=== PATIENT | female | born 1990 | race Caucasian/White ===

== ENCOUNTER 2016-05-17 14:42 | Outpatient (CLI) | payer MEDICAID ==
[~2016-05-17] VITALS: Ht 154.9 cm; Wt 80.4 kg
[~2016-05-17 14:42] MED LIST: PREN1TAB49
[2016-05-17 14:58] VITALS: BP 113/63; PULSE 96; RESP 19; Ht 154.9 cm; Wt 80.4 kg
--- NOTE | 2016-05-17 15:37 | RADRPT ---
PROCEDURE: US biophysical profile. CLINICAL INDICATION: Vaginal bleeding. TECHNIQUE: Multiple sonographic images of the uterus were obtained. The images were revi ewed on a PACS workstation. COMPARISON: No prior studies are available for comparison. FINDINGS: There is a single live intrauterine gestation. heart rate is 126 beats per minute. The position is cephalic. The placenta is anterior grade II with no abruption or previa. The DREW is 9.4 cm. (Normal = 5-20 cm.) Breathing Movement: 2 Gross Body Movement: 2 Tone: 2 Qualitative Amniotic Fluid Volume: 2 TOTAL: 8 IMPRESSION: 1. The biophysical score is 8/8. RPTAT: QQ .Lars Segovia MD, MD Date Time Electronically viewed and signed by .Lars Segovia MD, on 05/17/2016 15:37 .R/
--- NOTE | 2016-05-17 16:33 | TRIAGE ---
OB Triage Datetime Report Generated by CPN: 05/17/2016 16:33 Datetime: 05/17/2016 16:05 Stage of : OB Triage Maternal Assessment Level of Consciousness: Fully Conscious DTR's/Clonus: DTRs 1+ Headache: Denies Breath Sounds, Left: Clear and Equal Breath Sounds, Right: Clear and Equal Nausea/Vomiting: Denies RUQ Epigastric Pain: Denies Labor Evaluation Frequency: X1 Monitor Mode: External Duration (sec)2399: 70 Quality: Mild Pattern: Normal: <= 5 Contractions in 10 Minutes Resting Tone Lazy Y U: Relaxed Heart Rate FHR Baseline Rate: 120 Monitor Mode: External US Variability: Moderate 6-25 bpm Accelerations: 15X15 Decelerations: None Category: Category I Pain Assessment Pain Scale: 0 Pain Presence: None/Denies Pain Type: N/A Pain Goal: 2 Vaginal Exam Membrane Status: Intact Datetime: 05/17/2016 15:08 Maternal Assessment Level of Consciousness: Fully Conscious DTR's/Clonus: DTRs 1+ Headache: Denies Blurred Vision: No Respiratory Effort: Unlabored Breath Sounds, Left: Clear and Equal Breath Sounds, Right: Clear and Equal Nausea/Vomiting: Denies RUQ Epigastric Pain: Denies Facial Edema: None Labor Evaluation Frequency: NONE Monitor Mode: External Resting Tone Lazy Y U: Relaxed Heart Rate FHR Baseline Rate: 120 Monitor Mode: External US Variability: Moderate 6-25 bpm Accelerations: 15X15 Decelerations: None Category: Category I Pain Presence: None/Denies Pain Type: N/A Vaginal Exam Membrane Status: Intact Datetime: 05/17/2016 15:00 Assessment Type: Triage Maternal Assessment Level of Consciousness: Fully Conscious DTR's/Clonus: DTRs 2+; No Clonus Headache: Denies Blurred Vision: No Respiratory Effort: Unlabored; Regular Rhythm; Equal Expansion Breath Sounds, Left: Clear and Equal Breath Sounds, Right: Clear and Equal Nausea/Vomiting: Denies RUQ Epigastric Pain: Denies Lower Extremities Edema: None Degree: None Upper Extremities Edema: None Degree: None Facial Edema: None Fall Risk Assessment History of Falling: (0) No Secondary Diagnosis: (0) No Ambulatory Aid: (0) Bedrest/Nurse Assist IV Therapy: (0) No Gait: (0) Normal/Bedrest/Immobile Mental Status: (0) Oriented to Own Ability Fall Score: 0 Fall Risk Score Definition: No Risk: No action required Datetime: 05/17/2016 14:40 Time of Arrival: 05/17/2016 14:40 EGA: 37.5 Arrived By: Ambulatory Arrived From: Home Chief Complaint: PT CAME IN C/O UC'S AND SPOTTING AFTER SEX. STATES + MOVEMENT AT THSI TIME AND DEENIES ANY OTHER COMPLAINT. PT IS ALSO C/O LEAKING FLUID SINCE YESTERDAY AT 2100. Movement: Present Contractions: Irregular Rupture of Membranes: Denies Vaginal Bleeding: None Vaginal Discharge: Denies Recent Sexual Intercouse: Denies Abdominal Trauma: Not Applicable Patient Complaints: Contractions Additional Patient Complaints: NONE Time Provider Notified: 05/17/2016 15:00 Provider Notified: FELA Initial Plan: NST, BPP, VE AND PLACENTA LOCATION Datetime: 03/12/2016 20:00 Vaginal Bleeding: None Vaginal Discharge: Denies Recent Sexual Intercouse: Denies Datetime: 03/12/2016 19:47 Labor Evaluation Frequency: X2 Monitor Mode: External Duration (sec)2399: 50-60 Quality: Mild Pattern: Normal: <= 5 Contractions in 10 Minutes Resting Tone Lazy Y U: Relaxed Heart Rate FHR Baseline Rate: 125 Monitor Mode: External US FHR Baseline Changes: No Baseline Change Variability: Moderate 6-25 bpm Accelerations: 10X10 Decelerations: None Category: Category I Comments: WNL for GA Datetime: 03/12/2016 18:35 Labor Evaluation Frequency: IRREGULAR Monitor Mode: External Duration (sec)2399: 40-80 Quality: Mild Pattern: Normal: <= 5 Contractions in 10 Minutes Resting Tone Lazy Y U: Relaxed Heart Rate FHR Baseline Rate: 125 Monitor Mode: External US FHR Baseline Changes: No Baseline Change Variability: Moderate 6-25 bpm Accelerations: 15X15 Decelerations: None Category: Category I Datetime: 03/12/2016 16:54 Assessment Type: Admission Assessment Maternal Assessment Level of Consciousness: Fully Conscious DTR's/Clonus: DTRs 2+; No Clonus Headache: Denies Blurred Vision: No Respiratory Effort: Unlabored; Regular Rhythm; Equal Expansion Breath Sounds, Left: Clear and Equal Breath Sounds, Right: Clear and Equal Nausea/Vomiting: Denies RUQ Epigastric Pain: Denies Lower Extremities Edema: None Degree: None Upper Extremities Edema: None Degree: None Facial Edema: None Fall Risk Assessment History of Falling: (0) No Secondary Diagnosis: (0) No Ambulatory Aid: (0) Bedrest/Nurse Assist IV Therapy: (0) No Gait: (0) Normal/Bedrest/Immobile Mental Status: (0) Oriented to Own Ability Fall Score: 0 Fall Risk Score Definition: No Risk: No action required Labor Evaluation Frequency: 0 Pattern: Normal: <= 5 Contractions in 10 Minutes Resting Tone Lazy Y U: Relaxed Heart Rate FHR Baseline Rate: 130 Monitor Mode: External US Variability: Moderate 6-25 bpm Accelerations: 15X15 Decelerations: None Category: Category I Datetime: 03/12/2016 16:53 EGA: 28.2 Time Provider Notified: 03/12/2016 17:16 Datetime: 03/12/2016 16:30 Time of Arrival: 03/12/2016 15:54 Arrived By: Ambulatory Arrived From: Home Chief Complaint: HEADACHE, ABDOMINAL PAIN Movement: Present Contractions: Denies/Absent Rupture of Membranes: Denies Vaginal Bleeding: None Vaginal Discharge: Denies Recent Sexual Intercouse: Denies Abdominal Trauma: Not Applicable Patient Complaints: Cramping; Headache; Other Time Provider Notified: 03/12/2016 17:16 Provider Notified: DR STAUFFER (Annotations: Data stored by [facility] on behalf of user) Initial Plan: NST, UA, IV HYDRATION AND CERVICAL LENGHT, FFN,
--- NOTE | 2016-05-17 18:50 | PN ---
DATE: 05/17/2016 The patient is a 26-year-old at 37 weeks with leakage of fluid. Exam is within normal limits. ASSESSMENT: The patient is 37 weeks with false labor. The patient is discharged home. Follow up___ _ this week. Dictated By: ASHLEE CHAHAL MD /NTS Conf#: [id number] DID#: [id number]
== END 2016-05-17 16:20 | disposition home or self-care (01) ==
LOC: OBT 14:42 → L-D 14:45 → OBT 16:20
DX: O47.1 False labor at or after 37 completed weeks of gestation (principal); Z3A.37 37 weeks gestation of pregnancy
CPT/HCPCS: 76818; 84112; Z7500; G0463

== ENCOUNTER 2017-12-28 08:22 | Outpatient (CLI) | END 2017-12-28 11:25 | disposition home or self-care (01) ==

== ENCOUNTER 2018-02-16 19:07 | Outpatient (CLI) | END 2018-02-16 21:47 | disposition home or self-care (01) ==

== ENCOUNTER 2018-09-13 07:16 | Emergency (ER) | payer MEDICAID ==
[~2018-09-13] VITALS: Ht 160 cm; Wt 80.9 kg
[2018-09-13 07:18] VITALS: BP 103/51; PULSE 68; RESP 16; Ht 160 cm; Wt 80.9 kg
[2018-09-13] MEDS ORDERED: KETOROLAC 60 MG INJ IM STA (07:49)
[2018-09-13] MEDS ORDERED: ACET-141 PO (07:53)
[2018-09-13] MEDS ORDERED: FLUT16SP17 NASAL (07:53)
[2018-09-13] MEDS ORDERED: IBUP800T48 PO (07:53)
[2018-09-13] MEDS ORDERED: D-ME473S2 PO (07:53)
[2018-09-13] MEDS ORDERED: BENZ-6 PO (07:53)
[2018-09-13] MEDS ORDERED: ONDA4TAB14 PO (07:54)
[2018-09-13] MEDS ORDERED: PROMETHAZINE/DM (CUP) PO ONE (08:00)
[2018-09-13] MEDS ORDERED: DEXAMETHASONE 10 MG/ML 1 ML INJ IM ONE (08:00)
--- NOTE | 2018-09-13 08:04 | ERD ---
ER Documentation Chief Complaint Chief Complaint head and body pain with fever x yesterday HPI History of Present Illness: 28-year-old female who denies a past medical history coming in today with complaint of fever, headache, body pain that is been present since yesterday. Patient reports waking up with the symptoms yesterday. Patient reports T-max of 100.7 last night at approximately 2200. One episode of vomiting yesterday with lunch yesterday. Associated symptoms include nonproductive cough, fatigue. Headache is described as pressure, 7 of 10, constant, worsening when patient bends over; patient points to forehead when asked where pain is located.. At home pharmacological/nonpharmacological treatment for symptoms: Acetaminophen for fever last night, and at 6 AM this morning Denies social concerns; Denies recent foreign travel ROS All systems reviewed and are negative except as per history of present illness. Medications Home Meds Active Scripts Ondansetron (Ondansetron Odt) 4 Mg Tab.rapdis, 4 MG PO Q6H PRN for NAUSEA AND/OR VOMITING, #10 TAB Prov:GIGI LAIRD NP 09/13/18 Fluticasone Propionate* (Fluticasone Propionate* Nasal) 50 Mcg/[place] - 16 Gm [place].susp, 1 SPRAY NASAL DAILY for nasal congestion/stuffy nose, #1 BOTTLE TO EACH NOSTRIL Prov:GIGI LAIRD NP 09/13/18 Ibuprofen* (Motrin*) 800 Mg Tab, 800 MG PO Q6H PRN for PAIN AND OR ELEVATED TEMP, #30 TAB Prov:GIGI LAIRD NP 09/13/18 Acetaminophen* (Acetaminophen*) 500 MG Extra Strength Tablet, 1000 MG PO Q6H PRN for PAIN AND OR ELEVATED TEMP, #30 TAB Prov:GIGI LAIRD NP 09/13/18 Benzonatate* (Tessalon Perle*) 100 Mg Capsule, 100 MG PO Q8H PRN for COUGH, #20 CAP Prov:GIGI LAIRD NP 09/13/18 Dextromethorphan Hb-Promethazine Hcl* (Promethazine DM* Syrup) 473 Ml Syrup, 5 ML PO Q6 PRN for COUGH, #120 ML Prov:GIGI LAIRD NP 09/13/18 Reported Medications Vits W-Ca,Fe,Fa(<1MG) () 1 Tab Tablet 09/07/10 Allergies Allergies: Coded Allergies: No Known Allergies (Verified Allergy, Mild, 02/16/18) PMhx/Soc History of Surgery: Yes ( ) Anesthesia Reaction: No Hx Neurological Disorder: No Hx Respiratory Disorders: No Hx Cardiac Disorders: No Hx Psychiatric Problems: No Hx Miscellaneous Medical Probl: No Hx Alcohol Use: Yes (OCCASSIONALLY ) Hx Substance Use: No Hx Tobacco Use: No Smoking Status: Never smoker FmHx Family History: No diabetes, No coronary disease Physical Exam Vitals Vital Signs Date Temp Pulse Resp B/P (MAP) Pulse Ox O2 O2 Flow FiO2 Time Delivery Rate 09/13/18 99.0 68 16 103/51 98 07:18 (68) Physical Exam Const: No acute distress Head: Atraumatic, tenderness to palpation over frontal sinuses Eyes: Normal Conjunctiva ENT: Normal External Ears, and Mouth. Oropharynx clear without tonsillar exudate. Tympanic membranes without erythema, no perforation, no bulging. Nasal turbinates swollen. Neck: Full range of motion. No meningismus. Resp: Clear to auscultation bilaterally Cardio: Regular rate and rhythm, no murmurs Abd: Soft, non tender, non distended. Normal bowel sounds Skin: No petechiae or rashes Back: No midline or flank tenderness Ext: No cyanosis, or edema Neur: Awake and alert Psych: Normal Mood and Affect Results 24 hrs Current Medications Medications Dose Sig/Jorge Start Time Status Last (Trade) Ordered Route PRN Stop Time Admin Dose Reason Admin Ketorolac 60 mg ONCE STAT 09/13/18 DC Tromethamine IM 07:49 (Toradol) 09/13/18 07:52 10 mg ONCE ONCE 09/13/18 Dexamethasone IM 08:00 (Decadron) 09/13/18 08:01 Promethazine 5 ml ONCE ONCE 09/13/18 HCl/ PO 08:00 Dextromethorp 09/13/18 08:01 gonzalez (Phenergan-Dm ) Procedures/MDM ED course includes a thorough examination and history. Medications: Dexamethasone, ketorolac, promethazine/DM Imaging: Labs: Urine Low suspicion for life-threatening medical emergency. I have low suspicion for infectious process that requires use of antibiotics at this time. Low suspicion for influenza/pulmonary etiology. Otherwise healthy patient presenting with constellation of symptoms likely representing uncomplicated viral syndrome/acute frontal sinusitis as characterized by history, physical exam findings, lab. Urine negative. Patient reassessment 0755: Patient hemodynamically stable. Afebrile. No respiratory distress, otherwise relatively well appearing and nontoxic. Verbali zes understanding of plan of care as well as discharge instructions. Disposition given. Patient educated on diagnoses, prescriptions, follow-up care, return precautions. Strict return precautions given for worsening condition; questions answered discharge. Disposition for discharge with followup in 2 days with PCP/clinic. Departure Diagnosis: Primary Impression: Acute frontal sinusitis Recurrence: not specified as recurrent Qualified Codes: J01.10 - Acute frontal sinusitis, unspecified Additional Impression: Viral syndrome Condition: Stable Patient Instructions: Sinusitis, No Abx, Viral Syndrome (Adult) Referrals: [facility] YOU HAVE RECEIVED A MEDICAL SCREENING EXAM AND THE RESULTS INDICATE THAT YOU DO NOT HAVE A CONDITION THAT REQUIRES URGENT TREATMENT IN THE EMERGENCY DEPARTMENT. FURTHER EVALUATION AND TREATMENT OF YOUR CONDITION CAN WAIT UNTIL YOU ARE SEEN IN YOUR DOCTORS OFFICE WITHIN THE NEXT 1-2 DAYS. IT IS YOUR RESPONSIBILITY TO MAKE AN APPOINTMENT FOR [facility]. IF YOU HAVE A PRIMARY DOCTOR --you should call your primary doctor and schedule an appointment IF YOU DO NOT HAVE A PRIMARY DOCTOR YOU CAN CALL OUR PHYSICIAN REFERRAL HOTLINE AT IF YOU CAN NOT AFFORD TO SEE A PHYSICIAN YOU CAN CHOSE FROM THE FOLLOWING [facility] [address] [facility]. [facility] [address] [facility] [facility] [address] [facility] [facility] [address] [facility] [facility] [address] [facility]. [facility]. [address] [facility] [facility] YOU HAVE RECEIVED A MEDICAL SCREENING EXAM AND THE RESULTS INDICATE THAT YOU DO NOT HAVE A CONDITION THAT REQUIRES URGENT TREATMENT IN THE EMERGENCY DEPARTMENT. FURTHER EVALUATION AND TREATMENT OF YOUR CONDITION CAN WAIT UNTIL YOU ARE SEEN IN YOUR DOCTORS OFFICE WITHIN THE NEXT 1-2 DAYS. IT IS YOUR RESPONSIBILITY TO MAKE AN APPOINTMENT FOR [facility]-UP CARE. IF YOU HAVE A PRIMARY DOCTOR --you should call your primary doctor and schedule and appointment IF YOU DO NOT HAVE A PRIMARY DOCTOR YOU CAN CALL OUR PHYSICIAN REFERRAL HOTLINE AT . IF YOU CAN NOT AFFORD TO SEE A PHYSICIAN YOU CAN CHOSE FROM THE FOLLOWING [facility] INSTITUTIONS: [facility] [address] [place] [address] [facility] [address] [place] [address] [facility] [address] [place] [address] Additional Instructions: Thank you very much for allowing us to participate in your care. Your health and safety is our top priority at [facility]. It is important to read all discharge instructions and education provided in your discharge packet. Call your primary care doctor TOMORROW for an appointment during the next 2-4 days and bring all the information and medications prescribed. Have prescriptions filled and follow precisely the directions on the label. -Ibuprofen and acetaminophen is for pain and fever; both medications can be given at the same time if it is time for the next dose (acetaminophen every 6 hours, ibuprofen every 6 hours). It is important to have adequate fever control to prevent febrile complications such as seizures. --Benzonatate is a medication that will help with cough suppression. This medication will not make you drowsy. --Fluticasone Is a Steroid Nose [place] for the Nose; Use This Every Day for Stuffy Nose/Nasal Congestion. -Ondansetron/Zofran is a medication for nausea/vomitting; take this medication as needed for nausea/vomiting/decreased appetite. -Promethazine DM is a cough syrup but also contains an antihistamine. This medication may cause drowsiness. Take this medication as needed for cough and allergy symptoms. If the symptoms get worse and your provider is unavailable, return to the Emergency Department immediately. GIGI LAIRD NP September 13, 2018 08:04
== END 2018-09-13 08:29 | disposition home or self-care (01) ==
LOC: FTE 07:16
DX: J01.10 Acute frontal sinusitis, unspecified (principal); B34.9 Viral infection, unspecified
CPT/HCPCS: 81025; J1100; J1885; Z7610; 96372

== ENCOUNTER 2018-11-10 08:52 | Emergency (ER) | payer MEDICAID ==
[~2018-11-10] VITALS: Wt 63.0 kg
[~2018-11-10 08:52] MED LIST changes: +ACET-141 PO; +BENZ-6 PO; +D-ME473S2 PO; +FLUT16SP17 NASAL; +IBUP800T48 PO; +ONDA4TAB14 PO
[2018-11-10 08:54] VITALS: BP 113/54; PULSE 78; RESP 18
[2018-11-10] MEDS ORDERED: ACETAMINOPHEN 500 MG TAB PO STA (09:07)
[2018-11-10] MEDS ORDERED: MECL12.574 PO (09:13)
[2018-11-10] MEDS ORDERED: ONDA4TAB13 PO (09:13)
[2018-11-10] MEDS ORDERED: MECLIZINE 12.5 MG TAB PO ONE (09:30)
[2018-11-10] MEDS ORDERED: LIDOCAINE/MYLANTA 40 ML BTL PO ONE (09:30)
--- NOTE | 2018-11-10 09:34 | ERD ---
ER Documentation Chief Complaint Chief Complaint NAUSEA VOMITING X 1 DAY HPI 28-year-old female presented to ED for nausea vomiting x1 day. She states she has both serial and threw up right after. Patient denies fever chills diarrhea abdominal pain. Patient has past medical history of tubal ligation. Patient denies any allergies to medication. Patient states this happened 2 months ago and she came to the ED they gave her meclizine and she felt better. ROS All systems reviewed and are negative except as per history of present illness. Medications Home Meds Active Scripts Ondansetron Hcl* (Zofran*) 4 Mg Tab, 4 MG PO Q4H PRN for NAUSEA AND OR VOMITING for 7 Days, TAB Prov:JACINTO BURGOS PA-C 11/10/18 Meclizine Hcl* (Antivert*) 12.5 Mg Tab, 12.5 MG PO Q6H PRN for DIZZINESS, #20 TAB Prov:JACINTO BURGOS PA-C 11/10/18 Ondansetron (Ondansetron Odt) 4 Mg Tab.rapdis, 4 MG PO Q6H PRN for NAUSEA AND/OR VOMITING, #10 TAB Prov:GIGI LAIRD NP 09/13/18 Fluticasone Propionate* (Fluticasone Propionate* Nasal) 50 Mcg/[place] - 16 Gm [place].susp, 1 SPRAY NASAL DAILY for nasal congestion/stuffy nose, #1 BOTTLE TO EACH NOSTRIL Prov:GIGI LAIRD NP 09/13/18 Ibuprofen* (Motrin*) 800 Mg Tab, 800 MG PO Q6H PRN for PAIN AND OR ELEVATED TEMP, #30 TAB Prov:GIGI LAIRD NP 09/13/18 Acetaminophen* (Acetaminophen*) 500 MG Extra Strength Tablet, 1000 MG PO Q6H PRN for PAIN AND OR ELEVATED TEMP, #30 TAB Prov:GIGI LAIRD NP 09/13/18 Benzonatate* (Tessalon Perle*) 100 Mg Capsule, 100 MG PO Q8H PRN for COUGH, #20 CAP Prov:GIGI LAIRD NP 09/13/18 Dextromethorphan Hb-Promethazine Hcl* (Promethazine DM* Syrup) 473 Ml Syrup, 5 ML PO Q6 PRN for COUGH, #120 ML Prov:GIGI LAIRD NP 09/13/18 Reported Medications Vits W-Ca,Fe,Fa(<1MG) () 1 Tab Tablet 09/07/10 Allergies Allergies: Coded Allergies: No Known Allergies (Verified Allergy, Mild, 02/16/18) PMhx/Soc History of Surgery: Yes (, TUBAL LIGATION) Anesthesia Reaction: No Hx Neurological Disorder: No Hx Respiratory Disorders: No Hx Cardiac Disorders: No Hx Psychiatric Problems: No Hx Miscellaneous Medical Probl: No Hx Alcohol Use: Yes (OCCASSIONALLY ) Hx Substance Use: No Hx Tobacco Use: No FmHx Family History: No diabetes, No coronary disease, No other Physical Exam Vitals Vital Signs Date Temp Pulse Resp B/P (MAP) Pulse Ox O2 O2 Flow FiO2 Time Delivery Rate 11/10/18 98.0 78 18 113/54 99 08:54 (73) Physical Exam Const: Mild distress Eyes: Normal Conjunctiva ENT: Normal External Ears, Nose and Mouth. Resp: Clear to auscultation bilaterally Cardio: Regular rate and rhythm, no murmurs Abd: Soft, non tender, non distended. Normal bowel sounds Skin: No petechiae or rashes Back: No midline or flank tenderness Neuro: No signs of nystagmus Results 24 hrs Laboratory Tests Test 11/10/18 09:16 11/10/18 09:25 Urine Color YELLOW Urine Clarity SLIGHTLY CLOUDY Urine pH 5.0 Urine Specific [place] 1.016 Urine Ketones NEGATIVE mg/dL Urine Nitrite NEGATIVE mg/dL Urine Bilirubin NEGATIVE mg/dL Urine Urobilinogen NEGATIVE mg/dL Urine Leukocyte Esterase NEGATIVE [place]/ul Urine Microscopic RBC 2 /HPF Urine Microscopic WBC 1 /HPF Urine Squamous Epithelial Cells FEW /HPF Urine Mucus FEW /HPF Urine Hemoglobin 2+ mg/dL Urine Glucose NEGATIVE mg/dL Urine Total Protein NEGATIVE mg/dl POC Beta HCG, Qualitative NEGATIVE Current Medications Medications Dose Sig/Jorge Start Time Status Last (Trade) Ordered Route PRN Stop Time Admin Dose Reason Admin Meclizine 12.5 mg ONCE ONCE 11/10/18 DC 11/10/18 HCl PO 09:30 09:24 (Antivert) 11/10/18 09:31 500 mg ONCE STAT 11/10/18 DC 11/10/18 Acetaminophen PO 09:07 09:24 (Tylenol 11/10/18 09:10 Tab) 40 ml ONCE ONCE 11/10/18 DC 11/10/18 Miscellaneous PO 09:30 09:24 Medication 11/10/18 09:31 (Gi Cocktail (2)) Procedures/MDM ED course: UA Urine The patient was stable throughout the ED course. The patient and/or family informed of laboratory and diagnostic imaging results throughout the ED course. Medications given in ER: Meclizine GI cocktail Acetaminophen Patient tolerated medication well with no adverse reactions. Patient reported improvement in pain. Medical decision making: Patient 28-year-old female presented to ED for nausea dizziness and vomiting x1 day. Patient states she woke up this morning gettable cereal throughout the immediately after. Patient denies any chance of being . Urine screen was negative. The patient's UA shows no signs of UTI. Patient's abdominal exam was unremarkable it was soft nontender she had no right upper quadrant tenderness McBurney's point provoked no pain. At this time I have low suspicion for cholecystitis, choledocholithiasis, ascending cholangitis, hepatic abscess, pancreatitis, PUD, gastritis, GERD. Patient's neuro exam was unremarkable patient had no vertical or horizontal nystagmus. Patient's pupils equal round reactive to light. Patient has no asymmetry in her face. Patient's tympanic membranes are intact non-erythematous. The patient had no pain to palpation to the orbital. The patient is afebrile and vitals remained stable. At this time I have low suspicion for orbital cellulitis, benign positional vertigo, TIA. The patient was given a GI cocktail and meclizine. The patient was reevaluated 40 minutes later and appears to be doing much better. She states that the symptoms have resided. Advised the patient that she needs to follow-up with her primary care provider in 1 to 2 days regarding this visit. If symptoms worsen return to ER immediately. Patient is in agreement treatment plan had no further questions upon discharge. Prescription for home: Meclizine Zofran I have discussed with the patient proper use and common side effects to expert with the medication . I advised the patient/family to speak with the pharmacist dispensing the medication to be advised of any potential drug interactions with other medication or supplements they may be taking. Discharge: At this time, patient is stable for discharge and outpatient management. I have instructed the patient to follow-up with his\her primary care physician in 1 to 2 days. I have discussed with the patient the possibility of needing to see a specialist for further work-up and imaging studies if symptoms persist. I have instructed the patient to promptly return to the ER for any new or worsening symptoms including increased pain, fever, nausea, vomiting, weakness or LOC. The patient and\or family expressed understanding of and agreement with this plan. All questions were answered. Home care instructions were provided. Disclaimer: Inadvertent spelling and grammatical errors are likely due to EHR\dictation soft person use and do not reflect on the overall quality of patient care. Also, please note that the electronic time recorded on the note does not necessarily reflect the actual time of the patient encounter. Departure Diagnosis: Primary Impression: Nausea and vomiting Vomiting type: unspecified Vomiting Intractability: unspecified Qualified Codes: R11.2 - Nausea with vomiting, unspecified Additional Impression: Dizziness Condition: Stable Patient Instructions: Nausea and Vomiting-Adult Referrals: [facility] YOU HAVE RECEIVED A MEDICAL SCREENING EXAM AND THE RESULTS INDICATE THAT YOU DO NOT HAVE A CONDITION THAT REQUIRES URGENT TREATMENT IN THE EMERGENCY DEPARTMENT. FURTHER EVALUATION AND TREATMENT OF YOUR CONDITION CAN WAIT UNTIL YOU ARE SEEN IN YOUR DOCTORS OFFICE WITHIN THE NEXT 1-2 DAYS. IT IS YOUR RESPONSIBILITY TO MAKE AN APPOINTMENT FOR FOLOW-UP CARE. IF YOU HAVE A PRIMARY DOCTOR --you should call your primary doctor and schedule an appointment IF YOU DO NOT HAVE A PRIMARY DOCTOR YOU CAN CALL OUR PHYSICIAN REFERRAL HOTLINE AT IF YOU CAN NOT AFFORD TO SEE A PHYSICIAN YOU CAN CHOSE FROM THE FOLLOWING [facility] [address] [facility]. [facility] [address] [facility] [address] [facility]. [facility] [address] [facility]. [facility] [address] [facility]. [facility]. [address] [facility] YOU HAVE RECEIVED A MEDICAL SCREENING EXAM AND THE RESULTS INDICATE THAT YOU DO NOT HAVE A CONDITION THAT REQUIRES URGENT TREATMENT IN THE EMERGENCY DEPARTMENT. FURTHER EVALUATION AND TREATMENT OF YOUR CONDITION CAN WAIT UNTIL YOU ARE SEEN IN YOUR DOCTORS OFFICE WITHIN THE NEXT 1-2 DAYS. IT IS YOUR RESPONSIBILITY TO MAKE AN APPOINTMENT FOR FOLOW-UP CARE. IF YOU HAVE A PRIMARY DOCTOR --you should call your primary doctor and schedule and appointment IF YOU DO NOT HAVE A PRIMARY DOCTOR YOU CAN CALL OUR PHYSICIAN REFERRAL HOTLINE AT . IF YOU CAN NOT AFFORD TO SEE A PHYSICIAN YOU CAN CHOSE FROM THE FOLLOWING [facility] INSTITUTIONS: [facility] [address] [place] [address] [facility] [address] [place] [address] [facility] [address] [place] [address] Additional Instructions: FOLLOW UP WITH YOUR PRIMARY CARE PHYSICIAN TOMORROW.Return to this facility if you are not improving as expected. JACINTO BURGOS PA-C Nov 10, 2018 09:34
== END 2018-11-10 10:03 | disposition home or self-care (01) ==
LOC: FTE 08:52
DX: R11.2 Nausea with vomiting, unspecified (principal); R42 Dizziness and giddiness
CPT/HCPCS: 81001; 81025; Z7502; Z7610; 99282